=== PATIENT | male | born 1945 | race Caucasian/White ===

== ENCOUNTER 2017-01-23 13:19 | Emergency (ER) | payer MEDICARE ==
[2017-01-23] MEDS ORDERED: Amoxicillin/Clavulanate K 875-125 MG Tab PO ONE (13:20)
[2017-01-23] MEDS ORDERED: Lidocaine 2% 20 ML MDV INJECT ONE (14:02)
[2017-01-23] MEDS ORDERED: Diphtheria,Pertussis(Acell),Tetanus Vaccine 0.5 ML Syringe IM ONE (14:50)
[2017-01-23] MEDS ORDERED: Bacitracin/Neomycin/Polymyxin B Oint 0.9 GM U/D Packet TOP PRN (14:52)
[2017-01-23] MEDS ORDERED: Take Home: Amoxicillin/Clavulanate K 875-125 MG Tab, 2 Tab Pack PO ONE (15:21)
--- NOTE | 2017-01-23 15:30 | EDM.PDOC ---
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 Painful laceration of the left index finger. Pressure bandage applied and registered ER. Onset: Today Onset Date: 01/23/17 Onset Time: 12:45 Location: Reports: Upper Extremity, Left Quality: Reports: Ache, Throbbing Severity: Mild Improves with: Reports: Immobilization Worsens with: Reports: Movement Context: Reports: Trauma Associated Symptoms: Reports: No Other Symptoms - Related Data Allergies Allergy/AdvReac Type Severity Reaction Status Date / Time Sulfa (Sulfonamide Allergy Other Verified 01/23/17 13:47 Antibiotics) Home Meds: Home Meds Amitriptyline [Elavil] 50 mg PO DAILY 01/18/17 [History] Aspirin 1 tab PO DAILY 01/18/17 [History] Calcium Carbonate/Vitamin D3 [Calcium 600 + Vit D 400 Softgl] 1 tab PO BID 01/18 [History] Cinnamon Bark [Cinnamon] 1 tab PO DAILY 01/18/17 [History] Cranberry Extract [Cranberry] 250 mg PO DAILY 01/18/17 [History] Iron Ps Cmplx/Vit B12/Fa [Poly-Iron 150 Forte] 1 tab PO BEDTIME 01/18/17 [ History] Multivitamin [Daily [place]] 1 tab PO DAILY 01/18/17 [History] Naproxen Sodium [Aleve] 1 tab PO DAILY PRN 01/18/17 [History] [place]-3/DHA/Epa/Fish Oil [[place] 3 500 Softgel] 1 tab PO DAILY 01/18/17 [History] Psyllium Husk [Metamucil] 660 gm PO DAILY 01/18/17 [History] Sennosides/Docusate Sodium [Stool Softener Tablet] 1 tab PO DAILY 01/18/17 [ History] Simvastatin [Zocor] 20 mg PO DAILY 01/18/17 [History] Tamsulosin [Flomax] 0.4 mg PO DAILY 01/18/17 [History] Vitamin E 400 unit PO DAILY 01/18/17 [History] diphenhydrAMINE HCl [Benadryl] 25 mg PO BEDTIME PRN 01/18/17 [History] Social & Family History - Tobacco Use Tobacco Use Within Last Twelve Months: No - Alcohol Use Alcohol Use History: No - Recreational Drug Use Recreational Drug Use: No - Living Situation & Occupation Living situation: Reports: Single, with Family Occupation: Disabled ED ROS GENERAL - Review of Systems Review Of Systems: See Below Constitutional: Reports: No Symptoms HEENT: Reports: No Symptoms Respiratory: Reports: No Symptoms Cardiovascular: Reports: No Symptoms Endocrine: Reports: No Symptoms GI/Abdominal: Reports: No Symptoms : Reports: Urinary Retention, Other (Seen in ER for urinary retention- catheter and Cipro 500 mg BID past week) Musculoskeletal: Reports: Hand Pain Skin: Reports: Wound, Other (Laceration left index finger) Neurological: Reports: No Symptoms Psychiatric: Reports: Other (History of CVA) Hematologic/Lymphatic: Reports: No Symptoms Immunologic: Reports: No Symptoms ED EXAM, SKIN/RASH Exam: See Below Exam Limited By: No Limitations General Appearance: Alert, WD/WN, No Apparent Distress Eye Exam: Bilateral Eye: EOMI, PERRL Ears: Normal External Exam, Normal Canal, Hearing Grossly Normal, Normal TMs Nose: Normal Inspection, Normal Mucosa, No Blood Throat/Mouth: Normal Inspection, Normal Lips, Normal Teeth, Normal Gums, Normal Oropharynx, Normal Voice, No Airway Compromise Head: Atraumatic, Normocephalic Neck: Normal Inspection, Supple, Non-Tender, Full Range of Motion Respiratory/Chest: No Respiratory Distress, Lungs Clear, Normal Breath Sounds, No Accessory Muscle Use, Chest Non-Tender Cardiovascular: Normal Peripheral Pulses, Regular Rate, Rhythm, No Edema, No Gallop, No JVD, No Murmur, No Rub Peripheral Pulses: 2+: Radial (L), Radial (R) GI/Abdominal: Normal Bowel Sounds, Soft, Non-Tender, No Organomegaly, No Distention, No Abnormal Bruit, No Mass (Male) Exam: No Hernia, Normal Inspection, Normal Prostate, Circumcised Rectal (Males) Exam: Normal Exam, Normal Rectal Tone, Prostate Normal Back Exam: Normal Inspection, Full Range of Motion, NT Extremities: Normal Inspection, Normal Range of Motion, Non-Tender, No Pedal Edema, Normal Capillary Refill Neurological: Alert, Oriented, CN II-XII Intact, Normal Cognition, Normal Gait, Normal Reflexes, No Motor/Sensory Deficits Psychiatric: Normal Affect, Normal Mood Skin: Warm, Other (3 cm complex laceration of the Left index finger ) Location, Skin: Upper Extremity, Left Characteristics: Other Associated features: Warmth, Tenderness, Swelling (Complex laceration) Lymphatic: No Adenopathy ED SKIN PROCEDURES - Laceration/Wound Repair Left Proximal Dorsal Finger Lac/Wound length In cm: 3 Appearance: Irregular, Mildly Contaminated Distal NVT: Neuro & Vascular Intact, No Tendon Injury Anesthetic Type: Local Local Anesthesia - Lidocaine (Xylocaine): 2% Plain Local Anesthetic Volume: 5cc Skin Prep: Providone-Iodine (Betadine), Saline, Sterile Drape Saline Irrigation (cc's): 500 Exploration/Debridement/Repair: Wound Explored, In a Bloodless Field, Explored to Base, Minimal Debridement, Wound Margins Revised, Multiple Flaps Aligned Closed with: Sutures Suture Size: 3-0 # of Sutures: 10 (Silk) Suture Type: Silk, Interrupted Suture Size: 3-0 # of Sutures: 6 Repaired with: Vicryl Drain Placement: No Sterile Dressing Applied: Provider Tetanus Status Addressed: Other (Update Tdap) Complications: No - Splinting Left 2nd Digit Pre-Procedure NV Status: Normal Post-Procedure NV Status: Normal Splint Material: Metal Splint Design: Other (Finger) Applied & Form Fitted By: Provider Provider Post-Splint Application NV Check: NV Status Normal, Good Position Complications: No Course - Orders/Labs/Meds Orders: Active Orders 24 hr Category Date Time Status Vaccines to be Administered [RC] PER UNIT ROUTINE Care 01/23/17 14:50 Active Fingers Second Digit Lt F1 [CR] Stat Exams 01/23/17 13:50 Taken Bacitracin/Neomycin/Polymyxin [Triple Antibiotic Oint] Med 01/23/17 14:52 Active 1 each TOP BID PRN Medication Orders Neomycin/Polymyxin/Bacitracin (Triple Antibiotic Oint) 1 each TOP BID PRN PRN Reason: Wound Care Last Admin: 01/23/17 15:03 Dose: 1 each Meds: Medications Generic Name Dose Route Start Last Admin Trade Name Freq PRN Reason Stop Dose Admin Neomycin/Polymyxin/Bacitracin 1 each 01/23/17 14:52 01/23/17 15:03 Triple Antibiotic Oint TOP 1 each BID PRN Administration Wound Care Discontinued Medications Generic Name Dose Route Start Last Admin Trade Name Freq PRN Reason Stop Dose Admin Amoxicillin/Clavulanate Potassium 3 packet 01/23/17 15:21 Take Home: Amox/Clavulanate 875-12, 2 Tab Pac PO 01/23/17 15:22 ONETIME ONE Diphtheria/Tetanus/Acell Pertussis 0.5 ml 01/23/17 14:50 01/23/17 15:04 Adacel IM 01/23/17 14:51 0.5 ml .ONCE ONE Administration Lidocaine HCl 20 ml 01/23/17 14:02 01/23/17 14:40 Xylocaine 2% INJECT 01/23/17 14:03 20 ml ONETIME ONE Administration Departure - Departure Time of Disposition: 15:37 Disposition: Home, Self-Care 01 Condition: Good Clinical Impression: Laceration - Discharge Information Instructions: Pain Medicine Instructions, [id number], Laceration Care, Adult , [id number], Stitches, [place], or Adhesive Wound Closure, [id number] MLP Sign Off - Signature Requirements MLP Sign Off: No - Problem List & Annotations (1) Laceration SNOMED Code(s): 867766491 Code(s): SSH5740 - Status: Acute - My Orders Last 24 Hours: My Active Orders 01/23/17 13:50 Fingers Second Digit Lt F1 [CR] Stat 01/23/17 14:50 Vaccines to be Administered [RC] PER UNIT ROUTINE 01/23/17 14:52 Bacitracin/Neomycin/Polymyxin [Triple Antibiotic Oint] 1 each TOP BID PRN - Assessment/Plan Last 24 Hours: My Active Orders 01/23/17 13:50 Fingers Second Digit Lt F1 [CR] Stat 01/23/17 14:50 Vaccines to be Administered [RC] PER UNIT ROUTINE 01/23/17 14:52 Bacitracin/Neomycin/Polymyxin [Triple Antibiotic Oint] 1 each TOP BID PRN Assessment:: Lacerated left index finger-complex Immunization update Plan: Laceration Repair Update Tdap Splint application- Tylenol prn discomfort Augmentin 875 mg BID x 10 days F/U 10 days for suture removal or prn.
== END 2017-01-23 16:50 | disposition home or self-care (01) ==
LOC: CC.ED 13:19
PROC: 0HQEXZZ Repair Left Lower Arm Skin, External Approach (ICD-10-PCS; principal; 2017-01-23)
DX: S61.211A Laceration without foreign body of left index finger without damage to nail, initial encounter (principal); Z88.2 Allergy status to sulfonamides; Z79.82 Long term (current) use of aspirin; Z79.899 Other long term (current) drug therapy; Z23 Encounter for immunization
CPT/HCPCS: 12042; 73140; 90715; 96372; 99283; A9270; 90471

== ENCOUNTER 2018-04-14 13:45 | Observation (INO) | payer MEDICARE ==
[2018-04-14] MEDS ORDERED: Sodium Chloride 0.9% 10 ML Syringe FLUSH PRN (16:00)
[2018-04-14] MEDS ORDERED: diphenhydrAMINE 25 MG Cap PO PRN (16:03)
[2018-04-14] MEDS: Ketorolac 30 MG/ML SDV IVPUSH SCH (16:31)
[2018-04-14] MEDS: Enoxaparin 40 MG/0.4 ML Syringe SUBCUT SCH (17:41)
[2018-04-14] MEDS ORDERED: Amitriptyline 25 MG Tab PO SCH (20:00)
[2018-04-15] MEDS: **PTOM** Finasteride 5 MG Tab PO SCH (07:48)
[2018-04-15] MEDS: SIMVASTATIN 20 MG PO SCH (07:49)
[2018-04-15] MEDS: **PTOM** Tamsulosin 0.4 MG Cap.ER PO SCH (07:50)
[2018-04-15] MEDS: POLY IRON FORTE PO SCH (07:50)
[2018-04-15] MEDS: Ketorolac 30 MG/ML SDV IVPUSH SCH ×2 (07:57→19:40)
--- NOTE | 2018-04-15 08:26 | PCM.PN ---
- General Info Date of Service: 04/15/18 Admission Dx/Problem (Free Text): Left Knee Pain Functional Status: Reports: Pain Controlled, Tolerating Diet, Ambulating - Review of Systems General: Reports: Weakness HEENT: Reports: No Symptoms Pulmonary: Reports: No Symptoms Cardiovascular: Reports: No Symptoms Gastrointestinal: Reports: No Symptoms Genitourinary: Reports: No Symptoms Musculoskeletal: Reports: Joint Pain Skin: Reports: No Symptoms Neurological: Reports: No Symptoms - Patient Data Vitals - Most Recent: Last Vital Signs Temp 98.1 F 04/15/18 07:29 Pulse 76 04/15/18 07:29 Resp 20 04/15/18 07:29 BP 141/78 H 04/15/18 07:29 Pulse Ox 96 04/15/18 07:29 Weight - Most Recent: 236 lb 3.2 oz Lab Results Last 24 Hours: Laboratory Results - last 24 hr 04/14/18 04/14/18 Range/Units 17:05 17:05 WBC 5.8 (5.0-10.0) 10^3/uL RBC 4.64 (4.50-6.00) 10^6/uL Hgb 13.6 L (14.0-18.0) g/dL Hct 41.9 (40.0-54.0) % MCV 90.3 (82.0-94.0) fL MCH 29.3 (27.0-32.0) pg MCHC 32.5 L (33.0-38.0) g/dL RDW Coeff of [place] 14.2 (11.0-15.0) % Plt Count 170 (150-400) 10^3/uL MPV 10.9 fL Sodium 142 (136-145) mEq/L Potassium 4.4 (3.5-5.0) mEq/L Chloride 105 (98-106) mEq/L Carbon Dioxide 27 (21-32) mmol/L BUN 20 H (7-18) mg/dL Creatinine 1.3 (0.7-1.3) mg/dL Est Cr Clr Drug Dosing 53.03 mL/min Estimated GFR (MDRD) 54 L (>=60) mL/min Glucose 94 (75-99) mg/dL Calcium 8.9 (8.4-10.1) mg/dL Med Orders - Current: Current Medications Diphenhydramine HCl (Benadryl) 25 mg PO BEDTIME PRN PRN Reason: Sleep Enoxaparin Sodium (Lovenox) 40 mg SUBCUT 1600 [facility] Last Admin: 04/14/18 17:41 Dose: 40 mg Finasteride (Proscar) 5 mg PO DAILY [facility] Last Admin: 04/15/18 07:48 Dose: 5 mg Ketorolac Tromethamine (Toradol) 30 mg IVPUSH 0800,2000 [facility] Last Admin: 04/15/18 07:57 Dose: 30 mg Ptom Amitriptyline 50 Mg Tab 50 mg PO BEDTIME [facility] Last Admin: 04/14/18 19:40 Dose: 50 mg Ptom Sertraline (50 Mg) 50 mg PO DAILY [facility] Last Admin: 04/15/18 07:49 Dose: 50 mg Ptom Simvastatin (20 Mg) 20 mg PO DAILY [facility] Last Admin: 04/15/18 07:49 Dose: 20 mg Ptom Poly-Iron (Forte 150 Mg) 150 mg PO DAILY [facility] Last Admin: 04/15/18 07:50 Dose: 150 mg Senna/Docusate Sodium (Senna Plus) 1 tab PO BID [facility] Last Admin: 04/15/18 07:57 Dose: 1 tab Sodium Chloride (Saline Flush) 10 ml FLUSH ASDIRECTED PRN PRN Reason: Keep Vein Open Tamsulosin HCl (Flomax) 0.4 mg PO DAILY [facility] Last Admin: 04/15/18 07:50 Dose: 0.4 mg Discontinued Medications Amitriptyline HCl (Elavil) 50 mg PO BEDTIME [facility] - Exam General: Alert, Oriented HEENT: Mucous Membr. Moist/[place] Neck: Supple Lungs: Clear to Auscultation, Normal Respiratory Effort Cardiovascular: Regular Rate, Regular Rhythm GI/Abdominal Exam: Normal Bowel Sounds, Soft, Non-Tender Extremities: Joint Swelling, Leg Pain, Limited Range of Motion, Other (Patient is tender to medial aspect of the medial knee joint. He does have pain with full extension.) - Problem List & Annotations (1) Left knee pain SNOMED Code(s): 22270274 Code(s): M25.562 - PAIN IN LEFT KNEE Status: Acute Priority: High Current Visit: Yes Qualifiers: Chronicity: acute Qualified Code(s): M25.562 - Pain in left knee - Problem List Review Problem List Initiated/Reviewed/Updated: Yes - Assessment Assessment:: Left Knee Pain - Plan Plan:: Patient feels he is 50% better today. Does continue to have moderate joint effusion. Tender to medial joint line. Able to flex easily, difficulty with full extension. Rest of exam is negative. Labs on admit all normal. Will continue with IV Toradol. Arrange for MRI on Wednesday. Physical therapy eval today. Ambulate. Probable discharge home tomorrow.
[2018-04-15] MEDS: Enoxaparin 40 MG/0.4 ML Syringe SUBCUT SCH (16:33)
[2018-04-16] MEDS: Ketorolac 30 MG/ML SDV IVPUSH SCH (07:31)
[2018-04-16] MEDS: POLY IRON FORTE PO SCH (07:32)
[2018-04-16] MEDS: **PTOM** Finasteride 5 MG Tab PO SCH (07:32)
[2018-04-16] MEDS: **PTOM** Tamsulosin 0.4 MG Cap.ER PO SCH (07:33)
[2018-04-16] MEDS: SIMVASTATIN 20 MG PO SCH (07:33)
--- NOTE | 2018-04-16 09:07 | PCM.DCSUM1 ---
Discharge Summary - Hospital Course HPI Initial Comments: This patient is a 73 year old male that was admitted due to falling and injuring his left knee. Patient reports left medial knee pain since his fall. Patient reports that his knee today is feeling better. Patient does have flexion /extension of the knee. Flexion with pain in the medial aspect. There is some swelling compared to the right knee. No color changes. Pulses +2, cap refill <2 sec, sensory/motor function intact. Neurovascular intact. Patient alert and oriented. Labs are unremarkable. Patient is scheduled for an MRI of the left knee Wednesday at noon. Patient reports that he is ready to go home. Patient has been taking Toradol every 12 hours for pain here. I will encourage Aleve or Ibuprofen at home. The patient was ambulatory in the hallways of the hospital without problem. I will send patient home with a knee immobilizer as needed. Diagnosis: Stroke: No - Discharge Data Discharge Date: 04/16/18 Discharge Disposition: Home, Self-Care 01 Condition: Good - Patient Summary/Data Consults: Consultations 04/14/18 16:00 PT Evaluation and Treatment [CONS] Routine - Patient Instructions Diet: Usual Diet as Tolerated Activity: Apply Ice, As Tolerated, Elevate Extremity, Full Weight Bearing (if able), No Strenuous Activities, Rest and Relax Today Driving: May Drive Today Showering/Bathing: May Shower Notify Provider of: Fever, Increased Pain, Swelling and Redness, Drainage, Nausea and/or Vomiting - Discharge Plan *PRESCRIPTION DRUG MONITORING PROGRAM REVIEWED*: No *COPY OF PRESCRIPTION DRUG MONITORING REPORT IN PATIENT [place]: No Home Medications: Home Meds Amitriptyline [Elavil] 50 mg PO BEDTIME 01/18/17 [History] Aspirin 1 tab PO DAILY 01/18/17 [History] Calcium Carbonate/Vitamin D3 [Calcium 600 + Vit D 400 Softgl] 1 tab PO BID 01/18 [History] Cinnamon Bark [Cinnamon] 1 tab PO DAILY 01/18/17 [History] Cranberry Extract [Cranberry] 250 mg PO DAILY 01/18/17 [History] Iron Ps Cmplx/Vit B12/Fa [Poly-Iron 150 Forte] 150 mg PO BEDTIME 01/18/17 [ History] Multivitamin [Daily [place]] 1 tab PO DAILY 01/18/17 [History] Naproxen Sodium [Aleve] 1 tab PO TID PRN 01/18/17 [History] [place]-3/DHA/Epa/Fish Oil [[place] 3 500 Softgel] 1 tab PO DAILY 01/18/17 [History] Psyllium Husk [Metamucil] 2 tbs PO DAILY 01/18/17 [History] Sennosides/Docusate Sodium [Stool Softener-Stim Lax Tablet] 1 tab PO BID [History] Simvastatin [Zocor] 20 mg PO DAILY 01/18/17 [History] Tamsulosin [Flomax] 0.4 mg PO DAILY 01/18/17 [History] Vitamin E 400 unit PO DAILY 01/18/17 [History] diphenhydrAMINE HCl [Benadryl] 25 mg PO BEDTIME PRN 01/18/17 [History] Finasteride 5 mg PO DAILY 04/14/18 [History] Sertraline 50 Mg 50 mg PO DAILY 04/16/18 [Rx] Simvastatin 20 Mg 20 mg PO DAILY 04/16/18 [Rx] Oxygen Therapy Mode: Nasal Cannula Patient Handouts: Knee Pain, Adult, [id number] - Discharge Summary/Plan Comment DC Time >30 min.: No Discharge Summary/Plan Comment: Followup with your primary care provider Return to the ER for worsening of condition or any emergent concerns Rest Ice Elevate Knee Immobilizer as needed Aleve over the counter for pain MRI schedulex at Noon on Wednesday. Please come to radiology department - General Info Date of Service: 04/16/18 Functional Status: Reports: Pain Controlled, Tolerating Diet, Ambulating - Review of Systems General: Reports: No Symptoms HEENT: Reports: No Symptoms Pulmonary: Reports: No Symptoms Cardiovascular: Reports: No Symptoms Gastrointestinal: Reports: No Symptoms Genitourinary: Reports: No Symptoms Musculoskeletal: Reports: Joint Pain (left knee medial) Skin: Reports: No Symptoms Neurological: Reports: No Symptoms Psychiatric: Reports: No Symptoms - Patient Data Vitals - Most Recent: Last Vital Signs Temp 97.4 F 04/16/18 07:35 Pulse 75 04/16/18 07:35 Resp 18 04/16/18 07:35 BP 114/95 H 04/16/18 07:35 Pulse Ox 99 04/16/18 07:35 Weight - Most Recent: 236 lb 3.2 oz Med Orders - Current: Current Medications Diphenhydramine HCl (Benadryl) 25 mg PO BEDTIME PRN PRN Reason: Sleep Enoxaparin Sodium (Lovenox) 40 mg SUBCUT 1600 [facility] Last Admin: 04/15/18 16:33 Dose: 40 mg Finasteride (Proscar) 5 mg PO DAILY [facility] Last Admin: 04/16/18 07:32 Dose: 5 mg Ketorolac Tromethamine (Toradol) 30 mg IVPUSH 0800,1999 [facility] Last Admin: 04/16/18 07:31 Dose: 30 mg Ptom Amitriptyline 50 Mg Tab 50 mg PO BEDTIME [facility] Last Admin: 04/15/18 19:42 Dose: 50 mg Ptom Sertraline (50 Mg) 50 mg PO DAILY [facility] Last Admin: 04/16/18 07:33 Dose: 50 mg Ptom Simvastatin (20 Mg) 20 mg PO DAILY [facility] Last Admin: 04/16/18 07:33 Dose: 20 mg Ptom Poly-Iron (Forte 150 Mg) 150 mg PO DAILY [facility] Last Admin: 04/16/18 07:32 Dose: 150 mg Senna/Docusate Sodium (Senna Plus) 1 tab PO BID [facility] Last Admin: 04/16/18 07:31 Dose: 1 tab Sodium Chloride (Saline Flush) 10 ml FLUSH ASDIRECTED PRN PRN Reason: Keep Vein Open Tamsulosin HCl (Flomax) 0.4 mg PO DAILY [facility] Last Admin: 04/16/18 07:33 Dose: 0.4 mg Discontinued Medications Amitriptyline HCl (Elavil) 50 mg PO BEDTIME [facility] - Exam General: Reports: Alert, Oriented, Cooperative, No Acute Distress Lungs: Reports: Clear to Auscultation, Normal Respiratory Effort Cardiovascular: Reports: Regular Rate, Regular Rhythm, No Murmurs Back Exam: Reports: Normal Inspection, Full Range of Motion Extremities: Normal Range of Motion, No Pedal Edema, Normal Capillary Refill, Joint Swelling (left medial aspect of the knee). No: Slow Capillary Refill, Limited Range of Motion, Increased Warmth, Redness Skin: Reports: Warm, Dry, Intact Neurological: Reports: No New Focal Deficit, Normal Gait, Normal Speech, Sensation Intact Psy/Mental Status: Reports: Alert, Normal Affect, Normal Mood
== END 2018-04-16 09:45 | disposition home or self-care (01) ==
LOC: CC.MS 13:45 → CC.FCMC 13:45 → CC.MS 14:41 → UNDOADMOB 14:41 → CC.MS 16:00
PROVIDERS: ADMIT Nurse Practitioner Family; ATTEND Family Medicine
DX: S89.92XA Unspecified injury of left lower leg, initial encounter (principal); W00.9XXA Unspecified fall due to ice and snow, initial encounter; Z79.899 Other long term (current) drug therapy; Z88.2 Allergy status to sulfonamides
CPT/HCPCS: 36415; 73560; 73562; 80048; 85027; 96372; 96374; 96376; 97161; 99217; 99219; 99225; A9270; G0378; J1650; J1885

== ENCOUNTER 2024-05-15 19:09 | Emergency (ER) | payer MEDICARE, OTHER ==
[2024-05-15] MEDS: Lidocaine 1% 5 ML VIAL INJECT ONE (19:25)
[2024-05-15] MEDS: Bacitracin/Neomycin/Polymyxin B Oint 0.9 GM U/D Packet TOP ONE (19:30)
[2024-05-15] MEDS: Diphtheria,Pertussis(Acell),Tetanus Vaccine 0.5 ML Syringe IM ONE (19:33)
== END 2024-05-15 19:45 | disposition home or self-care (01) ==
LOC: CC.ED 19:09
DX: S61.012A Laceration without foreign body of left thumb without damage to nail, initial encounter (principal); Z88.2 Allergy status to sulfonamides; Z79.899 Other long term (current) drug therapy; Z86.73 Personal history of transient ischemic attack (TIA), and cerebral infarction without residual deficits; Z23 Encounter for immunization; W26.0XXA Contact with knife, initial encounter; Y93.89 Activity, other specified
CPT/HCPCS: 12001; 90471; 90715; 99282-25; 99283; A9270-GY; J3490